=== PATIENT | female | born 1965 | race Caucasian/White ===

== ENCOUNTER 2019-02-01 09:43 | Emergency (ER) | payer BC, OTHER ==
[2019-02-01 10:24] LABS: Absolute Lymphocytes (CBC) 3.4 K/uL (0.7-4.9); Basophils % 0.8 % (0-1.3); Hematocrit 43.1 % (36.0-45.0); Lymphocytes % 34.1 % (15.3-44.8); MPV 8.3 fL (7.6-11.3); RBC Red Blood Cell Count 4.71 M/uL (3.86-4.86)
[2019-02-01 10:25] LABS: Protime INR 1.02
[2019-02-01 10:34] LABS: ALT/SGPT 36 U/L (12-78); AST/SGOT 16 U/L (15-37); Albumin 3.8 g/dL (3.4-5.0); Alkaline Phosphatase 74 U/L (45-117); BUN Blood Urea Nitrogen 14 mg/dL (7-18); Bicarbonate 28 mmol/L (21-32); Bilirubin Direct < 0.1 mg/dL (0-0.2); Bilirubin Total 0.4 mg/dL (0.2-1.0); Glucose Level 74 mg/dL (74-106); Magnesium 1.9 mg/dL (1.8-2.4); NT PRO-BNP 38 pg/mL (<125); Potassium 4.5 mmol/L (3.5-5.1); Protein, Total 7.3 g/dL (6.4-8.2); Sodium Level 144 mmol/L (136-145); Troponin (Emerg Dept Use Only) < 0.02 ng/mL (0.0-0.045)
--- NOTE | 2019-02-01 11:08 | RAD REPORT ---
EXAM DESCRIPTION: [place] Single View02/01/2019 10:12 am CLINICAL HISTORY: Chest pain COMPARISON: 2014 FINDINGS: The lungs appear clear of acute infiltrate. The heart is normal size IMPRESSION: No acute abnormalities displayed
--- NOTE | 2019-02-01 11:25 | EKG ---
Test Date: 2019-02-01 Test Time: 09:56:40 Combination Welder Apprentice: JOSH MEASUREMENT RESULTS: Intervals: Rate: 69 VT: 144 QRSD: 74 QT: 384 QTc: 411 [place]: P: 60 VT: 144 QRS: 53 T: 32 INTERPRETIVE STATEMENTS: Normal sinus rhythm Normal ECG Compared to ECG 05/24/2013 12:30:44 No significant changes Electronically Signed On 02-01-19 11:24:42 CDT by Juice Self
[2019-02-01] MEDS ORDERED: NA CHLORIDE 0.9% 1,000 ML ONE (11:41)
--- NOTE | 2019-02-01 11:56 | RAD REPORT ---
EXAM DESCRIPTION: CT - Chest For Pe Angio - 02/01/2019 11:36 am CLINICAL HISTORY: SOB;Chest pain COMPARISON: Chest Single View dated 02/01/2019 TECHNIQUE: Dynamically enhanced 3 mm thick images of the chest were obtained during administration o f approximately 150mL Isovue 370 IV contrast. Coronal and oblique MIP reconstruction images were gene rated and reviewed. Exam utilizes a protocol to evaluate the pulmonary arterial tree. All CT scans are performed using dose optimization technique as appropriate and may include automated exposure control or mA/KV adjustment according to patient size. FINDINGS: No pulmonary emboli are identified. The aorta as imaged shows no acute or suspicious finding. No pericardial thickening or effusion. No focal mass or consolidation. There is respiratory motion that could potentially mask a very early interstitial edema or infiltrate. Likelihood of significant lung parenchymal disease is felt to be lo w. No pleural effusion or pleural thickening. No mediastinal or hilar suspicious masses. No chest wall masses or abnormal axillary lymphadenopathy. No thyroid gland abnormality seen. IMPRESSION: No pulmonary emboli identified. No other significant or suspicious findings.
--- NOTE | 2019-02-01 12:58 | ER ---
Nurse's Notes [facility] Name: Alyssa Pierre Age: 53 yrs Sex: Female : 1965 Arrival Date: 02/01/2019 Time: 09:46 Bed 3 Private MD: Rolando Hanks B Diagnosis: Chest pain, unspecified Presentation: 02/01 10:00 Presenting complaint: Patient states: burning left sided chest pain radiating to left iw arm X 2 weeks, also feels SOB at times and feels her heart racing, feels like a panic attack, has been under increased stress recently, pain is 7/10, also recently stopped smoking, now vapes but is almost done with vaping. also has been feeling "fuzzy headed". Transition of care: patient was not received from another setting of care. Onset of symptoms was January 19, 2019. Risk Assessment: Do you want to hurt yourself or someone else? Patient reports no desire to harm self or others. Initial Sepsis Screen: Does the patient meet any 2 criteria? No. Patient's initial sepsis screen is negative. Does the patient have a suspected source of infection? No. Patient's initial sepsis screen is negative. Care prior to arrival: None. 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 - Social history:: Smoking status: Patient/guardian denies using tobacco. - Ebola Screening: : Patient negative for fever greater than or equal to 101.5 degrees Fahrenheit, and additional compatible Ebola Virus Disease symptoms Patient denies exposure to infectious person Patient denies travel to an Ebola-affected area in the 21 days before illness onset No symptoms or risks identified at this time. Screenin:51 Abuse screen: Denies threats or abuse. Denies injuries from another. Nutritional mg2 screening: No deficits noted. Tuberculosis screening: No symptoms or risk factors identified. Fall Risk IV access (20 points). Assessment: 10:48 General: Appears in no apparent distress. comfortable, Behavior is calm, cooperative. mg2 Pain: Complains of pain in chest Pain radiates to left arm Pain currently is 4 out of 10 on a pain scale. Quality of pain is described as burning, Pain began gradually, 2 weeks ago but worsen for the last 2 days. Is intermittent. Neuro: Level of Consciousness is awake, alert, obeys commands, Oriented to person, place, time, situation. Cardiovascular: Capillary refill < 3 seconds Patient's skin is warm and dry. Respiratory: Airway is patent Respiratory effort is even, unlabored, Respiratory pattern is regular, symmetrical. GI: : EENT: No signs and/or symptoms were reported regarding the EENT system. Derm: Skin is intact, is healthy with good turgor, Skin is pink, warm \\T\\ dry. normal. 13:22 Reassessment: Patient appears in no apparent distress at this time. Patient states mg2 feeling better. Vital Signs: 10:05 BP 134 / 85; Pulse 73; Resp 16 S; Temp 97.8; Pulse Ox 100% on R/A; Weight 77.11 kg; iw Height 5 ft. 5 in. (165.10 cm); Pain 7/10; 12:06 BP 108 / 96; Pulse 64; Resp 18; Pulse Ox 100% on R/A; mg2 13:22 BP 115 / 78; Pulse 70; Resp 18; Pulse Ox 100% on R/A; Pain 0/10; mg2 10:05 Body Mass Index 28.29 (77.11 kg, 165.10 cm) iw ED Course: 09:46 Patient arrived in ED. mr 09:46 Rolando Hanks MD is Private Physician. mr 09:52 Bruce Couch, IMAN is Primary Nurse. bp 10:01 Benjy Mackenzie NP is PHCP. pm1 10:01 Rahul Delaney MD is Attending Physician. pm1 10:03 Triage completed. iw 10:04 Arm band placed on. iw 10:08 EKG done, by civil cadd technician. reviewed by Benjy Mackenzie NP. at1 10:10 XRAY Chest (1 view) In Process Unspecified. EDMS 10:20 Inserted saline lock: 20 gauge in right antecubital area, using aseptic technique. mg2 Blood collected. 10:51 Patient has correct armband on for positive identification. night monitor on. Pulse mg2 ox on. NIBP on. Door closed. Warm blanket given. 10:52 No provider procedures requiring assistance completed. Patient maintains SpO2 mg2 saturation greater than 95% on room air. 11:37 CT Chest For PE Angio In Process Unspecified. EDMS 13:23 IV discontinued, intact, bleeding controlled, No redness/swelling at site. Pressure mg2 dressing applied. Administered Medications: 11:50 Drug: NS 0.9% 1000 ml Route: IV; Rate: 1000 ml; Site: right antecubital; mg2 13:22 Follow up: Response: No adverse reaction; IV Status: Completed infusion; IV Intake: mg2 1000ml Intake: 13:22 IV: 1000ml; Total: 1000ml. mg2 Outcome: 12:58 Discharge ordered by MD. pm1 13:23 Discharged to home ambulatory, with family. mg2 13:23 Condition: stable 13:23 Discharge instructions given to patient, family, Instructed on discharge instructions, follow up and referral plans. medication usage, Demonstrated understanding of instructions, follow-up care, medications, Prescriptions given X 1. 13:24 Patient left the ED. mg2 Signatures: Dispatcher [employer] EDND Elizabeth Lucas Irene, RN RN iw Dora Evans, solar applications development engineer EKG Tat1 Benjy Mackenzie, DIESEL BUS MECHANIC DIESEL BUS MECHANIC pm1 Bruce Couch RN RN bp [place], Michele RN RN mg2
--- NOTE | 2019-02-01 12:59 | EDPHYS ---
Physician Documentation [facility] Name: Alyssa Pierre Age: 53 yrs Sex: Female : 1965 Arrival Date: 02/01/2019 Time: 09:46 Bed 3 Private MD: Rolando Hanks B ED Physician Rahul Delaney HPI: 02/01 10:04 This 53 yrs old Female presents to ER via Wheelchair with complaints of Chest pm1 Pain, Shortness Of Breath, Anxiety. 10:04 The patient or guardian reports chest pain that is located primarily in the under left pm1 breast. Onset: 2 week(s) ago. The pain does not radiate. Associated signs and symptoms: Pertinent positives: palpitations, shortness of breath, left arm pain, anxiety. The chest pain is described as aching. Duration: The patient or guardian reports multiple episodes, over the past two weeks. Chest pain daily. Patient's chest pain today onset 630. Modifying factors: The symptoms are alleviated by nothing. the symptoms are aggravated by nothing. Severity of pain: in the emergency department the pain has improved. The patient has experienced similar episodes in the past, today's symptoms are similar, patient has been given prescriptions for ativan, valium, wellbutrin in the past by Dr. Hanks, but patient never takes them. 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 - Social history:: Smoking status: Patient/guardian denies using tobacco. - Ebola Screening: : Patient negative for fever greater than or equal to 101.5 degrees Fahrenheit, and additional compatible Ebola Virus Disease symptoms Patient denies exposure to infectious person Patient denies travel to an Ebola-affected area in the 21 days before illness onset No symptoms or risks identified at this time. ROS: 10:04 Constitutional: Negative for fever, chills, and weight loss, Eyes: Negative for injury, pm1 pain, redness, and discharge, ENT: Negative for injury, pain, and discharge, Neck: Negative for injury, pain, and swelling. 10:04 Abdomen/GI: Negative for abdominal pain, nausea, vomiting, diarrhea, and constipation, Back: Negative for injury and pain, MS/Extremity: Negative for injury and deformity, Skin: Negative for injury, rash, and discoloration, Neuro: Negative for headache, weakness, numbness, tingling, and seizure. 10:04 Cardiovascular: Positive for chest pain, palpitations, Negative for edema, orthopnea. 10:04 Respiratory: Positive for shortness of breath, Negative for cough, sputum production, wheezing. Exam: 10:25 Constitutional: This is a well developed, well nourished patient who is awake, alert, pm1 and in no acute distress. Head/Face: Normocephalic, atraumatic. Neck: Trachea midline, no thyromegaly or masses palpated, and no cervical lymphadenopathy. Supple, full range of motion without nuchal rigidity, or vertebral point tenderness. No Meningismus. Chest/axilla: Normal chest wall appearance and motion. Nontender with no deformity. No lesions are appreciated. Cardiovascular: Regular rate and rhythm with a normal S1 and S2. No gallops, murmurs, or rubs. Normal PMI, no JVD. No pulse deficits. Respiratory: Lungs have equal breath sounds bilaterally, clear to auscultation and percussion. No rales, rhonchi or wheezes noted. No increased work of breathing, no retractions or nasal flaring. Abdomen/GI: Soft, non-tender, with normal bowel sounds. No distension or tympany. No guarding or rebound. No evidence of tenderness throughout. Back: No spinal tenderness. No costovertebral tenderness. Full range of motion. Skin: Warm, dry with normal turgor. Normal color with no rashes, no lesions, and no evidence of cellulitis. MS/ Extremity: Pulses equal, no cyanosis. Neurovascular intact. Full, normal range of motion. 10:25 Neuro: Orientation: is normal, Motor: is normal, moves all fours, Sensation: is normal, no obvious gross deficits. Vital Signs: 10:05 BP 134 / 85; Pulse 73; Resp 16 S; Temp 97.8; Pulse Ox 100% on R/A; Weight 77.11 kg; iw Height 5 ft. 5 in. (165.10 cm); Pain 7/10; 12:06 BP 108 / 96; Pulse 64; Resp 18; Pulse Ox 100% on R/A; mg2 13:22 BP 115 / 78; Pulse 70; Resp 18; Pulse Ox 100% on R/A; Pain 0/10; mg2 10:05 Body Mass Index 28.29 (77.11 kg, 165.10 cm) iw MDM: 10:04 Patient medically screened. pm1 12:57 Data reviewed: vital signs. Data interpreted: Pulse oximetry: on room air is 100 %. pm1 Interpretation: normal. Counseling: I had a detailed discussion with the patient and/or guardian regarding: the historical points, exam findings, and any diagnostic results supporting the discharge/admit diagnosis, lab results, radiology results, the need for outpatient follow up, to return to the emergency department if symptoms worsen or persist or if there are any questions or concerns that arise at home. 12:57 ED course: Patient reports that her prescriptions for anxiety have and would pm1 like a prescription for antianxiety medication. Does not want a dose in the ER. 02/01 09:57 Order name: Basic Metabolic Panel; Complete Time: 10:38 mg2 02/01 09:57 Order name: CBC with Diff; Complete Time: 10:38 mg2 02/01 09:57 Order name: LFT's; Complete Time: 10:38 mg2 02/01 09:57 Order name: Magnesium; Complete Time: 10:38 mg2 02/01 09:57 Order name: NT PRO-BNP; Complete Time: 10:38 mg2 02/01 09:57 Order name: PT-INR; Complete Time: 10:38 mg2 02/01 09:57 Order name: Troponin (emerg Dept Use Only); Complete Time: 10:38 mg2 02/01 09:57 Order name: XRAY Chest (1 view); Complete Time: 11:11 mg2 02/01 09:57 Order name: EKG; Complete Time: 09:58 mg2 02/01 09:57 Order name: Cardiac monitoring; Complete Time: 10:08 mg2 02/01 10:51 Order name: D-Dimer; Complete Time: 11:09 pm1 02/01 11:10 Order name: CT Chest For PE Angio; Complete Time: 12:04 pm1 02/01 12:05 Order name: Troponin (emerg Dept Use Only); Complete Time: 12:56 pm1 02/01 09:57 Order name: EKG - Nurse/Tech; Complete Time: 10:08 mg2 02/01 09:57 Order name: IV Saline Lock; Complete Time: 10:08 mg2 02/01 09:57 Order name: Labs collected and sent; Complete Time: 10: mg2 02/01 09:57 Order name: O2 Per Protocol; Complete Time: 10: mg2 02/01 09:57 Order name: O2 Sat Monitoring; Complete Time: 10: mg2 EC:04 Rate is 69 beats/min. Rhythm is regular, Normal Sinus Rhythm with No ectopy. No Q pm1 waves. T waves are Normal. No ST changes noted. Clinical impression: Normal ECG. Administered Medications: 11:50 Drug: NS 0.9% 1000 ml Route: IV; Rate: 1000 ml; Site: right antecubital; mg2 13:22 Follow up: Response: No adverse reaction; IV Status: Completed infusion; IV Intake: mg2 1000ml Disposition: 02/01/19 12:58 Discharged to Home. Impression: Chest pain, unspecified. - Condition is Stable. - Discharge Instructions: Nonspecific Chest Pain. - Prescriptions for Ativan 0.5 mg Oral Tablet - take 1 tablet by ORAL route every 8 hours As needed; 6 tablet. - Medication Reconciliation Form, Thank You Letter, Antibiotic Education, Prescription Opioid Use form. - Follow up: Emergency Department; When: As needed; Reason: Worsening of condition. Follow up: Private Physician; When: 2 - 3 days; Reason: Recheck today's complaints, Continuance of care, Re-evaluation by your physician. - Problem is new. - Symptoms have improved. Addendum: 02/03/2019 06:54 Co-signature as Attending Physician, Rahul Delaney MD. g s Signatures: Dispatcher [employer] EDOR Mara Shaw RN RN iw Benjy Mackenzie, ASSEMBLING FABRICATOR ASSEMBLING FABRICATOR pm1 Rahul Delaney MD MD Lloyd Campbell RN RN mg2 Corrections: (The following items were deleted from the chart) 02/01 13:24 12:58 02/01/2019 12:58 Discharged to Home. Impression: Chest pain, unspecified. mg2 Condition is Stable. Forms are Medication Reconciliation Form, Thank You Letter, Antibiotic Education, Prescription Opioid Use. Follow up: Emergency Department; When: As needed; Reason: Worsening of condition. Follow up: Private Physician; When: 2 - 3 days; Reason: Recheck today's complaints, Continuance of care, Re-evaluation by your physician. Problem is new. Symptoms have improved. pm1
[2019-02-01 13:29] VITALS: TEMP 97.8; O2SAT 100
[2019-02-01 13:32] VITALS: BP 115/78
== END 2019-02-01 13:24 | disposition home or self-care (01) ==
LOC: ER 09:43
DX: R07.9 Chest pain, unspecified (principal); Z88.1 Allergy status to other antibiotic agents
CPT/HCPCS: 96361; 93005; 85025; 80048; 36415; 83735; 85610; 85379; 80076; 84484 ×2; 83880; 71275; 71045; 96360; 99285; Q9967; J7030

== ENCOUNTER 2019-05-19 10:04 | Emergency (ER) | payer BC ==
--- NOTE | 2019-05-19 10:56 | EDPHYS ---
Physician Documentation [facility] Name: Alyssa Pierre Age: 53 yrs Sex: Female : 1965 Arrival Date: 05/19/2019 Time: 10:06 Bed 5 Private MD: Rolando Hanks B ED Physician Ilya Sandhu HPI: 05/19 10:45 This 53 yrs old Female presents to ER via Ambulatory with complaints of Bump pm1 on Face. 11:01 the patient presents with a swollen area of the left mandibular area. Description: pm1 raised, swollen. Onset: The symptoms/episode began/occurred 3 day(s) ago. Possible cause(s): unknown. Associated signs and symptoms: Pertinent negatives: fever. Modifying factors: the symptoms are alleviated by nothing, the symptoms are aggravated by squeezing the lesion and expressing the contents. Severity of symptoms: in the emergency department the symptoms are actually worse. Patient with a deep pimple to the left side of her jaw that appeared a few days ago. She decided to try to squeeze it out yesterday and it got bigger and angry. Was not able to express anything out yesterday. She then poked it with a needle and nothing cam out. This morning she squeezed it further and some pus came out. 11:01 Patient also reports right sided trapezius pain that has been ongoing for 6 weeks. Has pm1 seen chiropractor and PCP for the pain and has been treating with OTC medications and massage. Patient's main concern at this visit today is her pimple that has worsened. 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 - Coronavirus screen:: The patient has NOT traveled to [place], [place], or [place] in the past 14 days. - Social history:: Smoking status: Patient denies any tobacco usage or history of. - Ebola Screening: : Patient denies exposure to infectious person Patient denies travel to an Ebola-affected area in the 21 days before illness onset. ROS: 11:01 Constitutional: Negative for fever, chills, and weight loss. pm1 11:01 Cardiovascular: Negative for chest pain, palpitations, and edema, Respiratory: Negative for shortness of breath, cough, wheezing, and pleuritic chest pain, Abdomen/GI: Negative for abdominal pain, nausea, vomiting, diarrhea, and constipation, Back: Negative for injury and pain, MS/Extremity: Negative for injury and deformity. 11:01 Neuro: Negative for headache, weakness, numbness, tingling, and seizure. 11:01 Neck: Positive for tenderness, of the right trapezius, Negative for stiffness, bony tenderness. 11:01 Skin: Positive for abscess, of the left mandibular area. 11:01 All other systems are negative. Exam: 11:01 Constitutional: This is a well developed, well nourished patient who is awake, alert, pm1 and in no acute distress. Head/Face: Normocephalic, atraumatic. ENT: Nares patent. No nasal discharge, no septal abnormalities noted. Tympanic membranes are normal and external auditory canals are clear. Oropharynx with no redness, swelling, or masses, exudates, or evidence of obstruction, uvula midline. Mucous membranes moist. Chest/axilla: Normal chest wall appearance and motion. Nontender with no deformity. No lesions are appreciated. Cardiovascular: Regular rate and rhythm with a normal S1 and S2. No gallops, murmurs, or rubs. Normal PMI, no JVD. No pulse deficits. Respiratory: Lungs have equal breath sounds bilaterally, clear to auscultation and percussion. No rales, rhonchi or wheezes noted. No increased work of breathing, no retractions or nasal flaring. 11:01 Back: No spinal tenderness. No costovertebral tenderness. Full range of motion. 11:01 MS/ Extremity: Pulses equal, no cyanosis. Neurovascular intact. Full, normal range of motion. 11:01 Neck: External neck: tenderness, that is mild, of the focal point area on right trapezius, C-spine: vertebral tenderness, is not appreciated, ROM/movement: is normal, is supple, Lymph nodes: no appreciated lymphadenopathy. 11:01 Skin: Appearance: normal except for affected area, abscess, of the Left distal mandibular area, phlegmon area 2.5 cm x 2 cm x 1 cm. No drainage, fluctuance, pointing, or surrounding cellulitis. 11:01 Neuro: Orientation: is normal, Motor: is normal, moves all fours, Gait: is steady, at a normal pace, without difficulty. Vital Signs: 10:37 BP 115 / 91; Pulse 80; Resp 17; Temp 98.9(TE); Pulse Ox 100% on R/A; Weight 83.91 kg; ss Height 5 ft. 6 in. (167.64 cm); Pain 3/10; 10:37 Body Mass Index 29.86 (83.91 kg, 167.64 cm) ss MDM: 10:41 Patient medically screened. pm1 10:54 Data reviewed: vital signs. Data interpreted: Pulse oximetry: on room air is 100 %. pm1 Interpretation: normal. Counseling: I had a detailed discussion with the patient and/or guardian regarding: the historical points, exam findings, and any diagnostic results supporting the discharge/admit diagnosis, the need for outpatient follow up, a ice sculptor, a plastic surgeon, to return to the emergency department if symptoms worsen or persist or if there are any questions or concerns that arise at home. 10:58 ED course: Patient was offered pain medications in the ER and as a prescription. pm1 Patient refused. Said she would just take OTC medications as needed. Administered Medications: 11:15 Drug: Clindamycin 600 mg {Note: Medication split into 2 separate injections, right ae4 deltoid and right gluteus.} Route: IM; Site: right gluteus; 11:30 Follow up: Response: No adverse reaction ae4 11:15 Drug: Tetanus-Diphtheria Toxoid Adult 0.5 ml {Owner/Operator: [employer]. Exp: ae4 05/09/2021. Lot #: [id number]. } Route: IM; Site: left deltoid; 11:30 Follow up: Response: No adverse reaction ae4 Disposition: 21:24 Co-signature as Attending Physician, Ilya Sandhu MD I agree with the assessment and kdr plan of care. Disposition: 05/19/19 10:56 Discharged to Home. Impression: Cutaneous abscess of face. - Condition is Stable. - Discharge Instructions: Skin Abscess. - Prescriptions for Clindamycin HCl 300 mg Oral Capsule - take 1 capsule by ORAL route every 6 hours for 10 days; 40 capsule. - Medication Reconciliation Form, Thank You Letter, Antibiotic Education, Prescription Opioid Use form. - Follow up: Emergency Department; When: As needed; Reason: Worsening of condition. Follow up: Private Physician; When: 2 - 3 days; Reason: Recheck today's complaints, Continuance of care, Re-evaluation by your physician. - Problem is new. - Symptoms have improved. Signatures: Ilya Sandhu MD MD [facility] Giselle Boston RN RN ss Benjy Mackenzie NP SOFTWARE SPECIALIST pm1 Kevin Shukla RN RN ae4 Corrections: (The following items were deleted from the chart) 10:57 10:56 05/19/2019 10:56 Discharged to Home. Impression: Local infection of the skin and pm1 subcutaneous tissue, unspecified - Left mandible. Condition is Stable. Forms are Medication Reconciliation Form, Thank You Letter, Antibiotic Education, Prescription Opioid Use. Follow up: Emergency Department; When: As needed; Reason: Worsening of condition. Follow up: Private Physician; When: 2 - 3 days; Reason: Recheck today's complaints, Continuance of care, Re-evaluation by your physician. Problem is new. Symptoms have improved. pm1 11:30 10:57 05/19/2019 10:56 Discharged to Home. Impression: Cutaneous abscess of face. ae4 Condition is Stable. Discharge Instructions: Cellulitis, Adult. Forms are Medication Reconciliation Form, Thank You Letter, Antibiotic Education, Prescription Opioid Use. Follow up: Emergency Department; When: As needed; Reason: Worsening of condition. Follow up: Private Physician; When: 2 - 3 days; Reason: Recheck today's complaints, Continuance of care, Re-evaluation by your physician. Problem is new. Symptoms have improved. pm1
--- NOTE | 2019-05-19 10:56 | ER ---
Nurse's Notes [facility] Name: Alyssa Pierre Age: 53 yrs Sex: Female : 1965 Arrival Date: 05/19/2019 Time: 10:06 Bed 5 Private MD: Rolando Hanks B Diagnosis: Cutaneous abscess of face Presentation: 05/19 10:34 Presenting complaint: Patient states: bump to L cheek x a few days because worse ss yesterday after mashing on it. Pt also reports pain to R neck/ shoulder x weeks. Pt has been seen by PCP and chiropractor for this pain. Transition of care: patient was not received from another setting of care. Onset of symptoms was May 16, 2019. Risk Assessment: Do you want to hurt yourself or someone else? Patient reports no desire to harm self or others. Initial Sepsis Screen: Does the patient meet any 2 criteria? No. Patient's initial sepsis screen is negative. Does the patient have a suspected source of infection? Yes: Skin breakdown/wound. Care prior to arrival: None. 10:34 Method Of Arrival: Ambulatory ss 10:34 Acuity: FAZAL 4 ss Triage Assessment: 10:30 General: Appears in no apparent distress. Behavior is calm, cooperative. ae4 11:16 Pain:. ae4 DOCTOR OF OSTEOPATHY: 19:22 LMP N/A - Post-menopause ae4 Historical: - Allergies: 10:37 TETRACYCLINES; ss - Home Meds: 10:37 None [Active]; ss - PMHx: 10:37 None; ss - PSHx: 10:37 cervical fusion; ss - Immunization history:: Adult Immunizations up to date. - Coronavirus screen:: The patient has NOT traveled to [place], [place], or [place] in the past 14 days. - Social history:: Smoking status: Patient denies any tobacco usage or history of. - Ebola Screening: : Patient denies exposure to infectious person Patient denies travel to an Ebola-affected area in the 21 days before illness onset. Screenin:00 Abuse screen: Denies threats or abuse. Nutritional screening: No deficits noted. ae4 Tuberculosis screening: No symptoms or risk factors identified. Fall Risk None identified. Assessment: 10:30 General: Appears in no apparent distress. comfortable, Behavior is calm, cooperative. ae4 Pain: Complains of pain in left jaw Pain does not radiate. Neuro: Level of Consciousness is awake, alert, obeys commands, Oriented to person, place, time, situation, Appropriate for age. Cardiovascular: Patient's skin is warm and dry. Respiratory: Airway is patent Respiratory effort is even, unlabored, Respiratory pattern is regular, symmetrical. GI: No signs and/or symptoms were reported involving the gastrointestinal system. : No signs and/or symptoms were reported regarding the genitourinary system. EENT: No signs and/or symptoms were reported regarding the EENT system. Derm: Wound noted left jaw. Musculoskeletal: Swelling present in left jaw. 11:30 Reassessment: Patient appears in no apparent distress at this time. No changes from ae4 previously documented assessment. Patient and/or family updated on plan of care and expected duration. Pain level reassessed. Vital Signs: 10:37 BP 115 / 91; Pulse 80; Resp 17; Temp 98.9(TE); Pulse Ox 100% on R/A; Weight 83.91 kg; ss Height 5 ft. 6 in. (167.64 cm); Pain 3/10; 10:37 Body Mass Index 29.86 (83.91 kg, 167.64 cm) ss ED Course: 10:06 Patient arrived in ED. ag5 10:08 Rolando Hanks MD is Private Physician. ag5 10:30 Bed in low position. Call light in reach. Pulse ox on. NIBP on. ae4 10:36 Triage completed. ss 10:37 Arm band placed on right wrist. ss 10:40 Benjy Mackenzie NP is PHCP. pm1 10:40 Ilya Sandhu MD is Attending Physician. pm1 10:45 Kevin Shukla RN is Primary Nurse. ae4 11:30 No provider procedures requiring assistance completed. Patient did not have IV access ae4 during this emergency room visit. Administered Medications: 11:15 Drug: Clindamycin 600 mg {Note: Medication split into 2 separate injections, right ae4 deltoid and right gluteus.} Route: IM; Site: right gluteus; 11:30 Follow up: Response: No adverse reaction ae4 11:15 Drug: Tetanus-Diphtheria Toxoid Adult 0.5 ml {Chief Communications Officer: [email or web address]. Exp: ae4 05/09/2021. Lot #: [id number]. } Route: IM; Site: left deltoid; 11:30 Follow up: Response: No adverse reaction ae4 Outcome: 10:56 Discharge ordered by . pm1 11:30 Patient left the ED. ae4 11:30 Discharged to home ambulatory. ae4 11:30 Condition: stable 11:30 Discharge instructions given to patient, Instructed on discharge instructions, follow up and referral plans. Demonstrated understanding of instructions, Prescriptions given X 1. Signatures: Giselle Boston RN RN Benjy Mackenzie NP [employer]IVER pm1 Kae Reed ag5 Kevin Shukla RN RN ae4
[2019-05-19] MEDS ORDERED: TETANUS & DIPHTHERIA TOX,ADULT 0.5 ML VIAL ONE (11:07)
[2019-05-19] MEDS ORDERED: CLINDAMYCIN IV 150 MG/ML (4 mL) VIAL ONE (11:07)
== END 2019-05-19 11:30 | disposition home or self-care (01) ==
LOC: ER 10:04
DX: L02.01 Cutaneous abscess of face (principal); Z88.3 Allergy status to other anti-infective agents
CPT/HCPCS: 90471; 90714; 96372; 99283; S0077

== ENCOUNTER 2023-03-03 19:40 | Emergency (ER) | payer OTHER ==
--- OUTSIDE RECORDS SUMMARY | 2023-03-03 19:43 | XMS REPORT | Continuity of Care Document ---
:1965 Author Organization [facility] t Address [address] [place] [id number] Care Team Providers Name Role Phone [email or web address] Attending Clinician Unavailable [email or web address] Admitting Clinician Unavailable Payers Payer Name Policy Type Policy Number Effective Date Expiration Date Judy brumfield [facility] [id number] 2022 00:00:00 (PPO) Problems This patient has no known problems. Allergies, Adverse Reactions, Alerts This patient has no known allergies or adverse reactions. Medications This patient has no known medications. Procedures This patient has no known procedures. Encounters Start End Encounter Admission Attending Care Care Encounter Source Date/Time Date/Time Type Type Clinicians Facility Department ID 2023-01-18 2023-01-18 Outpatient GC[facility]BZW_[facility] [id number] [facility] 00:00:00 00:00:00 diyala_S [id number] Medic al 2023-01-18 2023-01-18 Outpatient [facility] [id number] [facility] 00:00:00 00:00:00 diyala_S [id number] Medic al 2023-01-18 2023-01-18 Outpatient GC_GCBZW_[facility] PRIV [id number] [facility] 00:00:00 00:00:00 diyala_S [id number] Medic al 2023-01-18 2023-01-18 Outpatient GC_GCBZW_[facility] PRIV [id number] [facility] 00:00:00 00:00:00 diyala_S [id number] Medic al 2022-12-08 2022-12-08 Outpatient [facility] [id number] [facility] 00:00:00 padillaa_S [id number] Medic al 2022-12-02 2022-12-02 Outpatient GC_GCBZW_[facility] PRIV [id number] [facility] 00:00:00 00:00:00 elizabethyala_S [id number] Medic al Results This patient has no known results.
--- NOTE | 2023-03-04 05:52 | ER ---
Nurse's Notes [facility] Name: Alyssa Pierre Age: 57 yrs Sex: Female : 1965 Arrival Date: 03/03/2023 Time: 19:40 Bed External Waiting Private MD: Diagnosis: Assessment: 03/03 20:11 General: Pt stated she was no longer having pain, was going to leave if pain returns vc1 she will return to ER.. ED Course: 19:44 Patient arrived in ED. cassandra 20:08 Bravo Pollard is Attending Physician. ci Administered Medications: No medications were administered Outcome: 20:11 Patient left the ED. vc1 20:11 Eloped from waiting room, before seeing physician Time discovered patient gone: vc1 March 03, 2023 at 20:11 Signatures: Rica Benitez Vanessa RN RN vc1 Bravo Pollard ci Corrections: (The following items were deleted from the chart) 03/04 05:53 05:52 Patient left the ED. vc1 vc1
--- NOTE | 2023-03-04 05:52 | EDPHYS ---
Physician Documentation [facility] Name: Alyssa Pierre Age: 57 yrs Sex: Female : 1965 Arrival Date: 03/03/2023 Time: 19:40 Bed External Waiting Private MD: ED Physician Bravo Pollard MDM: 03/03 21:01 ED course: Patient not in room, left without being seen. ci Administered Medications: No medications were administered Disposition Summary: 03/04/23 05:52 Eloped Notes: Disposition: before being seen by provider vc1 Reason: wait time vc1 Signatures: Shantel Younger RN RN vc1 Bravo Pollard ci Corrections: (The following items were deleted from the chart) 21:03 20:08 Patient medically screened. ci ci
--- NOTE | 2023-03-08 17:38 | EKG ---
Test Date: 2023-03-03 Test Time: 20:37:50 Field Staff Manager: MARCUS MEASUREMENT RESULTS: Intervals: Rate: 73 MD: 146 QRSD: 72 QT: 386 QTc: 425 [place]: P: 59 MD: 146 QRS: 42 T: 29 INTERPRETIVE STATEMENTS: Normal sinus rhythm Normal ECG Compared to ECG 02/01/2019 09:56:40 No significant changes Electronically Signed On 03-08-23 17:26:44 JACQUARD [employer] by Joseph Tran
== END 2023-03-04 05:52 | disposition left against medical advice (07) ==
LOC: ER 19:40
DX: Z53.21 Procedure and treatment not carried out due to patient leaving prior to being seen by health care provider (principal)
CPT/HCPCS: 93005